=== PATIENT | male | born 1980 | race American Indian/Alaskan Native ===

== ENCOUNTER 2018-06-09 16:02 | Emergency (ER) | payer SELFPAY ==
--- NOTE | 2018-06-09 22:14 | Emergency Department Report ---
- General Chief complaint: Weakness Stated complaint: NAUSEA/DIZZINESS/FATIGUE Time Seen by Provider: 06/09/18 22:08 Source: patient Mode of arrival: Ambulatory Limitations: No Limitations - History of Present Illness MD Complaint: generalized weakness - Related Data Allergies Allergy/AdvReac Type Severity Reaction Status Date / Time No Known Allergies Allergy Unverified 06/09/18 16:20 ED Review of Systems ROS: Stated complaint: NAUSEA/DIZZINESS/FATIGUE Other details as noted in HPI ED Past Medical Hx - Past Medical History Previous Medical History?: No - Surgical History Past Surgical History?: No - Social History Smoking Status: Current Every Day Smoker Substance Use Type: None ED Physical Exam - General Limitations: No Limitations ED Course Vital Signs 06/09/18 16:13 Temperature 98.1 F Pulse Rate 66 Respiratory 18 Rate Blood Pressure 117/65 O2 Sat by Pulse 99 Oximetry Critical care attestation.: If time is entered above; I have spent that time in minutes in the direct care of this critically ill patient, excluding procedure time. ED Disposition Condition: Stable Referrals: PRIMARY CARE [Primary Care Provider] - 3-5 Days
[2018-06-09] MEDS ORDERED: SODIUM CHLORIDE FLUSH SYRINGE 10 ML IV PRN (22:50)
[2018-06-09] MEDS ORDERED: BABY ASPIRIN PO STA (22:50)
[2018-06-09 22:58] LABS: Basophils # (Auto) 0.1 K/mm3 (0.0-0.1); Eosinophils # (Auto) 0.3 K/mm3 (0.0-0.4); Eosinophils % (Auto) 5.7 % (0.0-4.3); Hematocrit 39.9 % (35.5-45.6); Hemoglobin 13.9 gm/dl (11.8-15.2); Lymphocytes # (Auto) 2.5 K/mm3 (1.2-5.4); Mean Corpuscular HGB Conc 35 % (32-34); Mean Corpuscular Hemoglobin 31 pg (28-32); Mean Corpuscular Volume 90 fl (84-94); Monocytes # (Auto) 0.5 K/mm3 (0.0-0.8); Monocytes % (Auto) 8.6 % (0.0-7.3); Platelet Count 248 K/mm3 (140-440); Red Blood Count 4.42 M/mm3 (3.65-5.03)
--- NOTE | 2018-06-09 22:59 | Emergency Department Report ---
Chief Complaint: Weakness Stated Complaint: NAUSEA/DIZZINESS/FATIGUE Time Seen by Provider: 06/09/18 22:08 - HPI History of Present Illness: 38-year-old -[place] male comes to the emergency room complaining of feeling dizzy lightheaded weakness nauseated 3 days. Patient states he feels fatigued. Patient reports that he was seen at [facility] about 2-3 weeks ago and they reported he was dehydrated. Patient reports that he is eating well and drinking fluids no fever he's taken aspirin for body aches. He works in a [employer]. He has no past medical story, and currently takes no medications on a daily basis and has no known drug allergies. - ROS Review of Systems: Feeling dizzy, lightheadedness, weakness and nauseated. Drinking well eating well and took aspirin for body aches. - Exam Vital Signs: Vital Signs 06/09/18 06/09/18 06/09/18 16:13 22:29 22:51 Temperature 98.1 F Pulse Rate 66 46 L Pulse Rate [ 46 L Lying] Pulse Rate [ 51 L Sitting] Pulse Rate [ 42 L Standing] Respiratory 18 Rate Blood Pressure 117/65 Blood Pressure 118/72 [Lying] Blood Pressure 113/71 [Sitting] Blood Pressure 121/70 [Standing] O2 Sat by Pulse 99 Oximetry Physical Exam: GENERAL: Alert and oriented x3, no apparent distress, Normal Gait, atraumatic. Patient appears to be lethargic HEAD: Head is normocephalic and a-traumatic. EYES: Extra ocular muscles are intact. Pupils are equal, round, and reactive to light and accommodation. EARS: symetrical, atraumatic, non tender, ear canal clear and moderate cerumen, tympanic membrance non inflamed. . NOSE: Nose symetrical, Nontender,Nares appeared normal. MOUTH:Mouth is well hydrated and without lesions. Tonsils nonerythematous or swollen, Uvula midline, Tongue not elevated. Mucous membranes are moist. Posterior pharynx clear, no exudate or lesions. Patent airways. NECK: Supple. Non edematous, No carotid bruits. No lymphadenopathy or thyromegaly. LUNGS: Symetrical with respiration, No wheezing, no rales or crackles, CTAB. HEART: S1, S2 present, regular rate and rhythm without murmur, no rubs, no gallops. ABDOMEN: No organomegaly was noted,Positive bowel sounds, soft, and non- distended. . Nontender to palpation on all Quadrants, NO CVA tenderness. EXTREMITIES/MUSCULOSKELETAL: No cyanosis, clubbing, rash, lesions or edema. Full ROM bilaterally. UE/LE Pulses 2+ bilaterally. LE and UE 5+ strength bilaterally NEUROLOGIC: No focal Deficit, Cranial nerves II through XII are grossly intact. No loss of sensation, No facial droop, Negative rhomberg. PSYCHIATRIC: Mood is congruent with affect, SKIN: Warm and dry, No lesions, No ulceration or induration present MSE screening note: Focused history and physical exam performed. Due to findings the following was ordered: CBC CMP troponin urinalysis chest x-ray IV insertion EKG. Patient's be evaluated by main ER doctors ED Medical Decision Making - Lab Data Result diagrams: 06/09/18 22:45 06/09/18 22:45 ED Disposition for MSE Clinical Impression: Lightheadedness, Bradycardia Condition: Stable Instructions: Near Syncope (ED) Additional Instructions: Rest, and avoid heavy lifting. Avoid strenuous physical activities. Follow-up with a clinical informatics strategist within the next 7-10 days. Return to the ER right away with new pain, worsened pain, migration of pain, particularly vomiting, change in mental status, confusion, inability to tolerate liquid feeds. Prescriptions: Ondansetron [Zofran Odt] 4 mg PO Q8HR PRN #20 tab.rapdis PRN Reason: Nausea Referrals: [facility] [Provider Group] - 3-5 Days [facility] [Provider Group] - 3-5 Days Forms: Work/School Release Form(ED)
[2018-06-09 23:03] LABS: Bilirubin,Urine NEG (Negative); Blood,Urine NEG (Negative); Color,Urine Yellow (Yellow); Mucus,Urine 1+ /HPF; Protein,Urine <15 mg/dL mg/dL (Negative)
[2018-06-09 23:14] LABS: Alanine Aminotransferase 17 units/L (7-56); Albumin 4.3 g/dL (3.9-5); BUN/Creatinine Ratio 10; Blood Urea Nitrogen 10 mg/dL (9-20); Calcium 9.2 mg/dL (8.4-10.2); Hemolysis Index 2
--- NOTE | 2018-06-09 23:44 | Emergency Department Report ---
ED General Adult HPI - General Chief complaint: Weakness Stated complaint: NAUSEA/DIZZINESS/FATIGUE Time Seen by Provider: 06/09/18 22:08 Source: patient, RN notes reviewed Mode of arrival: Ambulatory Limitations: No Limitations - History of Present Illness Initial comments: This is a 38-year-old gentleman who is not known to this provider previously. 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 He presents to the ER with complaints of nausea, dizziness, and lightheadedness. The symptoms are intermittent over the past week. The patient's symptoms are painless and does not radiate anywhere. 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 He does not have exertional shortness of breath. He denies leg pain, leg swelling, recent trips, cocaine use, drug use, and he denies DVT, pulmonary embolus risk factors. He endorses intermittent nausea. Currently, he has no headache, neck pain, chest pain, abdominal pain, shortness of breath. The patient endorses that he is eating 3 meals a day and drinks plenty of water. -: Gradual Consistency: intermittent Improves with: rest Worsens with: movement Associated Symptoms: loss of appetite, malaise, nausea/vomiting, syncope ( patient describes near syncope), weakness. denies: confusion, chest pain, cough , diaphoresis, fever/chills, headaches, rash, seizure, shortness of breath - Related Data Previous Rx's Medication Instructions Recorded Last Taken Type Ondansetron [Zofran Odt] 4 mg PO Q8HR PRN #20 tab.rapdis 06/09/18 Unknown Rx Allergies Allergy/AdvReac Type Severity Reaction Status Date / Time No Known Allergies Allergy Unverified 06/09/18 16:20 ED Review of Systems ROS: Stated complaint: NAUSEA/DIZZINESS/FATIGUE Other details as noted in HPI Constitutional: malaise, weakness. denies: fever Eyes: denies: eye discharge, vision change ENT: denies: epistaxis Respiratory: denies: cough Cardiovascular: denies: chest pain Gastrointestinal: nausea Genitourinary: denies: dysuria Musculoskeletal: denies: back pain Skin: denies: lesions Neurological: denies: numbness, paresthesias, confusion ED Past Medical Hx - Past Medical History Previous Medical History?: No - Surgical History Past Surgical History?: No - Social History Smoking Status: Current Every Day Smoker Substance Use Type: None - Medications Home Medications: Home Medications Medication Instructions Recorded Confirmed Last Taken Type Ondansetron [Zofran Odt] 4 mg PO Q8HR PRN #20 tab.siddharthadis 06/09/18 Unknown Rx ED Physical Exam - General Limitations: No Limitations General appearance: alert, in no apparent distress - Head Head exam: Present: atraumatic, normocephalic, other (there is no mastoid tenderness) - Eye Eye exam: Present: normal appearance, PERRL, EOMI, other (visual acuity intact to finger counting, color perception, reading at a close distance). Absent: nystagmus - ENT ENT exam: Present: normal exam, normal orophraynx, mucous membranes moist, normal external ear exam - Neck Neck exam: Present: normal inspection, full ROM. Absent: tenderness, meningismus - Respiratory Respiratory exam: Present: normal lung sounds bilaterally. Absent: respiratory distress - Cardiovascular Cardiovascular Exam: Present: normal rhythm, bradycardia, normal heart sounds. Absent: tachycardia, irregular rhythm, systolic murmur, diastolic murmur, rubs, gallop - GI/Abdominal GI/Abdominal exam: Present: soft. Absent: distended, tenderness, guarding, rebound, rigid, pulsatile mass - Rectal Rectal exam: Present: deferred - Extremities Exam Extremities exam: Present: normal inspection, full ROM, normal capillary refill , other (2+ pulses noted in the bilateral upper, lower extremities. Compartments soft. No long bony tenderness. The pelvis is stable.). Absent: tenderness, pedal edema, joint swelling, calf tenderness - Back Exam Back exam: Present: normal inspection, full ROM. Absent: tenderness, CVA tenderness (R), paraspinal tenderness, vertebral tenderness - Neurological Exam Neurological exam: Present: alert, oriented X3, CN II-XII intact, normal gait ( there is no past-pointing. There is normal [id number]. There is normal gait. There is normal tandem gait. There is negative Romberg examination), other (Extraocular movements intact. Tongue midline. No facial droop. Facial sensation intact to light touch in the V1, V2, V3 distribution bilaterally. 5 and 5 strength in 4 extremities.. Sensation is intact to light touch in 4 extremities.). Absent: motor sensory deficit - Psychiatric Psychiatric exam: Present: normal affect, normal mood - Skin Skin exam: Present: warm, dry, intact, normal color. Absent: rash ED Course Vital Signs 06/09/18 06/09/18 06/09/18 16:13 22:29 22:51 Temperature 98.1 F Pulse Rate 66 46 L Pulse Rate [ 46 L Lying] Pulse Rate [ 51 L Sitting] Pulse Rate [ 42 L Standing] Respiratory 18 Rate Blood Pressure 117/65 Blood Pressure 118/72 [Lying] Blood Pressure 113/71 [Sitting] Blood Pressure 121/70 [Standing] O2 Sat by Pulse 99 Oximetry ED Medical Decision Making - Lab Data Result diagrams: 06/09/18 22:45 06/09/18 22:45 Vital Signs 06/09/18 06/09/18 06/09/18 16:13 22:29 22:51 Temperature 98.1 F Pulse Rate 66 46 L Pulse Rate [ 46 L Lying] Pulse Rate [ 51 L Sitting] Pulse Rate [ 42 L Standing] Respiratory 18 Rate Blood Pressure 117/65 Blood Pressure 118/72 [Lying] Blood Pressure 113/71 [Sitting] Blood Pressure 121/70 [Standing] O2 Sat by Pulse 99 Oximetry Lab Results 06/09/18 06/09/18 06/09/18 Range/Units 22:45 22:45 22:45 WBC 5.5 (4.5-11.0) K/mm3 RBC 4.42 (3.65-5.03) M/mm3 Hgb 13.9 (11.8-15.2) gm/dl Hct 39.9 (35.5-45.6) % MCV 90 (84-94) fl MCH 31 (28-32) pg MCHC 35 H (32-34) % RDW 13.0 L (13.2-15.2) % Plt Count 248 (140-440) K/mm3 Lymph % (Auto) 45.0 H (13.4-35.0) % [place] % (Auto) 8.6 H (0.0-7.3) % Eos % (Auto) 5.7 H (0.0-4.3) % Baso % (Auto) 1.0 (0.0-1.8) % Lymph # 2.5 (1.2-5.4) K/mm3 [place] # 0.5 (0.0-0.8) K/mm3 Eos # 0.3 (0.0-0.4) K/mm3 Baso # 0.1 (0.0-0.1) K/mm3 Seg Neutrophils % 39.7 L (40.0-70.0) % Seg Neutrophils # 2.2 (1.8-7.7) K/mm3 Sodium 139 (137-145) mmol/L Potassium 3.8 (3.6-5.0) mmol/L Chloride 100.6 (98-107) mmol/L Carbon Dioxide 29 (22-30) mmol/L Anion Gap 13 mmol/L BUN 10 (9-20) mg/dL Creatinine 1.0 (0.8-1.5) mg/dL Estimated GFR > 60 ml/min BUN/Creatinine Ratio 10 % Glucose 99 (75-100) mg/dL Calcium 9.2 (8.4-10.2) mg/dL Total Bilirubin 0.80 (0.1-1.2) mg/dL AST 21 (5-40) units/L ALT 17 (7-56) units/L Alkaline Phosphatase 63 (35-129) units/L Total Protein 7.6 (6.3-8.2) g/dL Albumin 4.3 (3.9-5) g/dL Albumin/Globulin Ratio 1.3 % TSH 0.642 (0.270-4.200) mlU/mL Urine Color (Yellow) Urine Turbidity (Clear) Urine pH (5.0-7.0) Ur Specific [place] (1.003-1.030) Urine Protein (Negative) mg/dL Urine Glucose (UA) (Negative) mg/dL Urine Ketones (Negative) mg/dL Urine Blood (Negative) Urine Nitrite (Negative) Urine Bilirubin (Negative) Urine Urobilinogen (<2.0) mg/dL Ur Leukocyte Esterase (Negative) Urine WBC (Auto) (0.0-6.0) /HPF Urine RBC (Auto) (0.0-6.0) /HPF Urine Mucus /HPF 06/09/18 Range/Units Unknown WBC (4.5-11.0) K/mm3 RBC (3.65-5.03) M/mm3 Hgb (11.8-15.2) gm/dl Hct (35.5-45.6) % MCV (84-94) fl MCH (28-32) pg MCHC (32-34) % RDW (13.2-15.2) % Plt Count (140-440) K/mm3 Lymph % (Auto) (13.4-35.0) % [place] % (Auto) (0.0-7.3) % Eos % (Auto) (0.0-4.3) % Baso % (Auto) (0.0-1.8) % Lymph # (1.2-5.4) K/mm3 [place] # (0.0-0.8) K/mm3 Eos # (0.0-0.4) K/mm3 Baso # (0.0-0.1) K/mm3 Seg Neutrophils % (40.0-70.0) % Seg Neutrophils # (1.8-7.7) K/mm3 Sodium (137-145) mmol/L Potassium (3.6-5.0) mmol/L Chloride (98-107) mmol/L Carbon Dioxide (22-30) mmol/L Anion Gap mmol/L BUN (9-20) mg/dL Creatinine (0.8-1.5) mg/dL Estimated GFR ml/min BUN/Creatinine Ratio % Glucose (75-100) mg/dL Calcium (8.4-10.2) mg/dL Total Bilirubin (0.1-1.2) mg/dL AST (5-40) units/L ALT (7-56) units/L Alkaline Phosphatase (35-129) units/L Total Protein (6.3-8.2) g/dL Albumin (3.9-5) g/dL Albumin/Globulin Ratio % TSH (0.270-4.200) mlU/mL Urine Color Yellow (Yellow) Urine Turbidity Clear (Clear) Urine pH 6.0 (5.0-7.0) Ur Specific [place] 1.021 (1.003-1.030) Urine Protein <15 mg/dl (Negative) mg/dL Urine Glucose (UA) Neg (Negative) mg/dL Urine Ketones Neg (Negative) mg/dL Urine Blood Neg (Negative) Urine Nitrite Neg (Negative) Urine Bilirubin Neg (Negative) Urine Urobilinogen 4.0 (<2.0) mg/dL Ur Leukocyte Esterase Neg (Negative) Urine WBC (Auto) 1.0 (0.0-6.0) /HPF Urine RBC (Auto) 3.0 (0.0-6.0) /HPF Urine Mucus 1+ /HPF - EKG Data -: EKG Interpreted by Me EKG shows normal: sinus rhythm Rate: bradycardia - EKG Data When compared to previous EKG there are: previous EKG unavailable 06/09/18 23:44 Bradycardia, normal axis, benign early repolarization, high left ventricular voltage, intervals within normal limits, not having chest pain, not a STEMI - Medical Decision Making Differential diagnosis, including but not limited to: Orthostasis, vagal event, structural cardiac disease, bradycardia Assessment and plan: 38-year-old gentleman who does a lot of heavy lifting for work without exertional dyspnea, has no pulmonary embolus or DVT risk factors, is low risk by well's criteria, is perc negative, with lightheadedness, dizziness and nausea. These symptoms are intermittent. He is currently hemodynamically stable, normotensive and in no distress. He has a normal neurologic examination. He has no posterior circulation signs at this time. On my examination the patient is in no distress and noted to be playing on a cellular phone. There is no active vomiting. Patient is counseled to rest and avoid heavy lifting, and he will follow up with outpatient cardiology for his bradycardia. Critical care attestation.: If time is entered above; I have spent that time in minutes in the direct care of this critically ill patient, excluding procedure time. ED Disposition Clinical Impression: Lightheadedness, Bradycardia Disposition: DC-01 TO HOME OR SELFCARE Is pt being admited?: No Does the pt Need Aspirin: No Condition: Good Instructions: Near Syncope (ED) Additional Instructions: Rest, and avoid heavy lifting. Avoid strenuous physical activities. Follow-up with a fabrication engineer within the next 7-10 days. Return to the ER right away with new pain, worsened pain, migration of pain, particularly vomiting, change in mental status, confusion, inability to tolerate liquid feeds. Referrals: [facility] [Provider Group] - 3-5 Days [facility] - 3-5 Days Forms: Work/School Release Form(ED)
[2018-06-09] MEDS ORDERED: ZOFRAN ODT PO ONE (23:47)
[2018-06-09 23:50] LABS: INR 1.2 (0.87-1.13)
[2018-06-09 23:51] LABS: Partial Thromboplastin Time 30.9 Sec. (24.2-36.6)
[2018-06-10 00:21] VITALS: BP 132/84
== END 2018-06-10 00:16 | disposition home or self-care (01) ==
LOC: ED 16:02
DX: R42 Dizziness and giddiness (principal); R00.1 Bradycardia, unspecified; R11.2 Nausea with vomiting, unspecified; R63.0 Anorexia; R53.81 Other malaise; F17.200 Nicotine dependence, unspecified, uncomplicated
CPT/HCPCS: 36415; 80053; 81001; 84443; 85025; 85610; 85730; 93005; 93010; 99283; Q0162

== ENCOUNTER 2018-06-14 20:22 | Emergency (ER) | payer SELFPAY ==
[2018-06-14] MEDS ORDERED: ASPIRIN PO ONE (20:42)
[2018-06-14 21:02] LABS: Basophils # (Auto) 0.1 K/mm3 (0.0-0.1); Basophils % (Auto) 1.1 % (0.0-1.8); Eosinophils # (Auto) 0.2 K/mm3 (0.0-0.4); Eosinophils % (Auto) 4.1 % (0.0-4.3); Hematocrit 40.7 % (35.5-45.6); Lymphocytes # (Auto) 2.9 K/mm3 (1.2-5.4); Lymphocytes % (Auto) 49.7 % (13.4-35.0); Mean Corpuscular HGB Conc 34 % (32-34); Mean Corpuscular Hemoglobin 31 pg (28-32); Mean Corpuscular Volume 90 fl (84-94); Monocytes # (Auto) 0.3 K/mm3 (0.0-0.8); Monocytes % (Auto) 5.8 % (0.0-7.3); Platelet Count 249 K/mm3 (140-440); Red Blood Count 4.53 M/mm3 (3.65-5.03); Red Cell Distribution Width 12.7 % (13.2-15.2)
[2018-06-14 21:17] LABS: BUN/Creatinine Ratio 13; Blood Urea Nitrogen 13 mg/dL (9-20); Calcium 9.5 mg/dL (8.4-10.2); Hemolysis Index 4
[2018-06-15] MEDS ORDERED: TORADOL IM ONE (00:44)
--- NOTE | 2018-06-15 01:03 | Emergency Department Report ---
ED Chest Pain HPI - General Chief Complaint: Chest Pain Stated Complaint: CHEST PAIN Time Seen by Provider: 06/15/18 00:39 Source: patient Mode of arrival: Ambulatory Limitations: No Limitations - History of Present Illness Initial Comments: 38-year-old -[place] male presents to the emergency department with complaint of some midsternal nonradiating chest pain it's been going on since yesterday. He denies any shortness of breath, fever, nausea, vomiting or diaphoresis. He denies any past medical history. He did not take anything for his symptoms prior to presentation. No alleviating factors. The pain worsens with certain movements of his body and/or torso. He is a tobacco smoker but denies any illicit drug use. No family history of early cardiac disease or cardiac events. - Related Data Previous Rx's Medication Instructions Recorded Last Taken Type Ondansetron [Zofran Odt] 4 mg PO Q8HR PRN #20 tab.rapdis 06/09/18 Unknown Rx Ibuprofen [Motrin 600 MG tab] 600 mg PO Q8H PRN #20 tablet 06/15/18 Unknown Rx traMADol [Ultram 50 MG tab] 50 mg PO Q6HR PRN #12 tablet 06/15/18 Unknown Rx Allergies Allergy/AdvReac Type Severity Reaction Status Date / Time No Known Allergies Allergy Verified 06/14/18 20:42 Heart Score - HEART Score History: Slightly suspicious EKG: Normal Age: < 45 Risk factors: 1-2 risk factors Troponin: < normal limit HEART Score: 1 - Critical Actions Critical Actions: 0-3 pts:0.9-1.7%risk of adverse cardiac event.Candidate for discharge ED Review of Systems ROS: Stated complaint: CHEST PAIN Other details as noted in HPI Comment: All other systems reviewed and negative Constitutional: denies: chills, fever Eyes: denies: eye pain, eye discharge, vision change ENT: denies: ear pain, throat pain Respiratory: denies: cough, shortness of breath, wheezing Cardiovascular: chest pain. denies: palpitations Gastrointestinal: denies: abdominal pain, nausea, diarrhea Genitourinary: denies: urgency, dysuria Musculoskeletal: denies: back pain, joint swelling, arthralgia Skin: denies: rash, lesions Neurological: denies: headache, weakness, paresthesias ED Past Medical Hx - Past Medical History Previous Medical History?: Yes Additional medical history: low heart rate - Surgical History Past Surgical History?: No - Social History Smoking Status: Current Every Day Smoker Substance Use Type: None - Medications Home Medications: Home Medications Medication Instructions Recorded Confirmed Last Taken Type Ondansetron [Zofran Odt] 4 mg PO Q8HR PRN #20 tab.rapdis 06/09/18 Unknown Rx Ibuprofen [Motrin 600 MG tab] 600 mg PO Q8H PRN #20 tablet 06/15/18 Unknown Rx traMADol [Ultram 50 MG tab] 50 mg PO Q6HR PRN #12 tablet 06/15/18 Unknown Rx ED Physical Exam - General Limitations: No Limitations - Other Other exam information: GENERAL: The patient is well-developed well-nourished. HENT: Normocephalic. Atraumatic. Patient has moist mucous membranes. EYES: Extraocular motions are intact. Pupils equal reactive to light bilaterally. NECK: Supple. Trachea is midline. CHEST/LUNGS: Clear to auscultation. There is no respiratory distress noted. There is reproducible midsternal tenderness to palpation but no crepitus or deformity. HEART/CARDIOVASCULAR: Regular. There is no tachycardia. There is no murmur. ABDOMEN: Abdomen is soft, nontender. Patient has normal bowel sounds. There is no abdominal distention. SKIN: Skin is warm and dry. NEURO: The patient is awake, alert, and oriented. The patient is cooperative. The patient has no focal neurologic deficits. The patient has normal speech. MUSCULOSKELETAL: There is no tenderness or deformity. There is no limitation range of motion. There is no evidence of acute injury. ED Course Vital Signs 06/14/18 06/15/18 06/15/18 20:39 02:20 02:29 Temperature 98.3 F 97.7 F Pulse Rate 64 51 L Respiratory 18 18 Rate Blood Pressure 115/74 Blood Pressure 122/71 [Right] O2 Sat by Pulse 100 85 100 Oximetry 06/15/18 06/15/18 02:30 03:00 Temperature Pulse Rate Respiratory Rate Blood Pressure 122/71 110/63 Blood Pressure [Right] O2 Sat by Pulse 100 99 Oximetry SHRUTHI score - Shruthi Score Age > 65: (0) No Aspirin use within the Past 7 Days: (0) No 3 or more CAD Risk Factors: (0) No 2 or more Angina events in past 24 hrs: (1) Yes (if pain is considered angina but more likely to be costochondritis) Known CAD with more than 50% Stenosis: (0) No Elevated Cardiac Markers: (0) No ST Deviation Greater than 0.5mm: (0) No SHRUTHI Score: 1 ED Medical Decision Making - Lab Data Result diagrams: 06/14/18 20:53 06/14/18 20:53 - EKG Data -: EKG Interpreted by Me EKG shows normal: sinus rhythm, axis, intervals, QRS complexes (LVH, early repolarization), ST-T waves Rate: bradycardia (58 bpm) - EKG Data When compared to previous EKG there are: no significant change (06/09/18) Interpretation: LVH (early repolarization) - Radiology Data Radiology results: image reviewed interpreted by me: Chest x-ray does not show any acute process. There are no pleural effusions, obvious pneumonia and there is no pneumothorax. - Medical Decision Making Patient presents with some midsternal chest discomfort that is reproducible both to palpation and to movements of the torso. EKG shows some early repolarization but otherwise no ST elevation DC, dysrhythmia or obvious ischemia. Labs were unremarkable including negative troponins 2. Negative d- dimer. Chest x-ray did not show any acute process. The patient is low on the heart score criteria and has a low SHRUTHI score. Vital signs stable throughout his ED course. He was given a shot of Toradol with some improvement. He appears safe for discharge home has been given a referral for cardiology and instructed to return to the emergency Department with any worsening of symptoms or any acute distress. - Differential Diagnosis costochondritis, GERD, DC, PE Critical Care Time: No Critical care attestation.: If time is entered above; I have spent that time in minutes in the direct care of this critically ill patient, excluding procedure time. ED Disposition Clinical Impression: Chest pain, Chest wall pain Disposition: -01 TO HOME OR SELFCARE Is pt being admited?: No Condition: Stable Instructions: Chest Pain (ED), Costochondritis (ED) Additional Instructions: Please follow up with a primary care physician in the next few days. I have given her a referral for a local network diagnostic support specialist, Dr. Holden, to follow up regarding your chest pains. Return to the emergency Department with any worsening of your symptoms or any acute distress. You have been prescribed a medication that is sedating and therefore should not be taken prior to driving, working, and responsible for children and in no way should be mixed with alcohol of any quantity. Prescriptions: Ibuprofen [Motrin 600 MG tab] 600 mg PO Q8H PRN #20 tablet PRN Reason: Pain traMADol [Ultram 50 MG tab] 50 mg PO Q6HR PRN #12 tablet PRN Reason: Pain Referrals: PRIMARY CAREMD [Primary Care Provider] - 3-5 Days MISTY HOLDEN MD [Staff Physician] - 3-5 Days [facility] [Outside] - 3-5 Days Forms: Work/School Release Form(ED) Time of Disposition: 02:55
--- NOTE | 2018-06-15 01:05 | XRay Report ---
FINAL REPORT EXAM: XR CHEST ROUTINE 2V HISTORY: CP COMPARISON: None available. FINDINGS:: Frontal and lateral views of the chest obtained. Cardiac silhouette is within normal limits. No focal consolidation or effusion. No pneumothorax. Visualized bony thorax is grossly intact. IMPRESSION:: No acute findings.
[2018-06-15] MEDS ORDERED: ASPIRIN ONE (02:18)
[2018-06-15 03:18] VITALS: BP 110/63
== END 2018-06-15 03:21 | disposition home or self-care (01) ==
LOC: ED 20:22
DX: R07.89 Other chest pain (principal); R00.1 Bradycardia, unspecified; F17.200 Nicotine dependence, unspecified, uncomplicated
CPT/HCPCS: 36415; 71046; 80048; 84484; 85025; 85379; 93005; 93010; 96372; 99284; J1885

== ENCOUNTER 2018-10-01 22:40 | Inpatient (IN) | payer OTHER ==
[2018-10-01 23:28] LABS: Basophils % (Auto) 0.3 % (0.0-1.8); Eosinophils # (Auto) 0.1 K/mm3 (0.0-0.4); Eosinophils % (Auto) 0.4 % (0.0-4.3); Hematocrit 44.1 % (35.5-45.6); Hemoglobin 14.6 gm/dl (11.8-15.2); Lymphocytes # (Auto) 1.9 K/mm3 (1.2-5.4); Lymphocytes % (Auto) 16.2 % (13.4-35.0); Mean Corpuscular HGB Conc 33 % (32-34); Mean Corpuscular Volume 90 fl (84-94); Monocytes # (Auto) 0.8 K/mm3 (0.0-0.8); Monocytes % (Auto) 6.6 % (0.0-7.3); Platelet Count 293 K/mm3 (140-440)
[2018-10-01 23:31] LABS: Alanine Aminotransferase 12 units/L (7-56); Albumin 4.6 g/dL (3.9-5); BUN/Creatinine Ratio 13; Blood Urea Nitrogen 13 mg/dL (9-20); Calcium 9.6 mg/dL (8.4-10.2); Hemolysis Index 12
[2018-10-02] MEDS ORDERED: ZOFRAN IV ONE (01:57)
[2018-10-02] MEDS ORDERED: MORPHINE IV ONE (01:57)
[2018-10-02] MEDS ORDERED: NACL 0.9% 1000 ML 1,000 ML IV ONE (01:57)
--- NOTE | 2018-10-02 02:17 | Emergency Department Report ---
ED Abdominal Pain HPI - General Chief Complaint: Abdominal Pain Stated Complaint: N/V Time Seen by Provider: 10/02/18 01:56 Source: patient Mode of arrival: Ambulatory Limitations: No Limitations - History of Present Illness Initial Comments: Patient is a 38-year-old -[place] male sudden onset of right lower quadrant pain this a.m. as it awakened him from sleep at 10/10 pain sharp aching radiating to her back and groin patient states on either tolerate by mouth since with multiple episodes of watery diarrhea scant amount associated symptoms including malaise and fever . No relieving or other exacerbating factors MD Complaint: abdominal pain Onset/Timin -: days(s) Location: RLQ Radiation: LLQ, R flank Migration to: RLQ Severity: moderate Severity scale (0 -10): 10 Quality: sharp Consistency: constant Improves With: nothing Worsens With: eating Associated Symptoms: nausea, vomiting, diarrhea, fever, chills, constipation. denies: hematemesis, hematochezia, melena, hematuria, anorexia, syncope - Related Data Previous Rx's Medication Instructions Recorded Last Taken Type Ondansetron [Zofran ODT TAB] 4 mg PO Q8HR PRN #20 tab.rapdis 06/09/18 Unknown Rx Ibuprofen [Motrin 600 MG tab] 600 mg PO Q8H PRN #20 tablet 06/15/18 Unknown Rx traMADol [Ultram 50 MG tab] 50 mg PO Q6HR PRN #12 tablet 06/15/18 Unknown Rx ALBUTEROL Inhaler (OR & NICU) 2 puff IH QID PRN #1 inhalation 07/02/18 Unknown Rx [ProAir HFA Inhaler] Brompheniramine/Pseudoephed/Dm 5 ml PO Q6HR #120 syrup 07/02/18 Unknown Rx [Kpgpefpslx-Jadkrobqiiz-Nz Syr] predniSONE [Deltasone] 20 mg PO QDAY #5 tab 07/02/18 Unknown Rx Famotidine [Pepcid] 10 mg PO BID #30 tablet 07/25/18 Unknown Rx Allergies Allergy/AdvReac Type Severity Reaction Status Date / Time No Known Allergies Allergy Verified 07/02/18 11:12 ED Review of Systems ROS: Stated complaint: N/V Other details as noted in HPI Constitutional: chills, fever Eyes: denies: eye pain, eye discharge, vision change ENT: denies: ear pain, throat pain Respiratory: denies: cough, shortness of breath, wheezing Cardiovascular: denies: chest pain, palpitations Endocrine: no symptoms reported Gastrointestinal: abdominal pain, nausea, vomiting, diarrhea, constipation. d enies: hematemesis, hematochezia Genitourinary: denies: urgency, dysuria Musculoskeletal: denies: back pain, joint swelling, arthralgia Skin: denies: rash, lesions Neurological: denies: headache, weakness, paresthesias Psychiatric: denies: anxiety, depression Hematological/Lymphatic: denies: easy bleeding, easy bruising ED Past Medical Hx - Past Medical History Previous Medical History?: No Additional medical history: low heart rate - Surgical History Past Surgical History?: No - Social History Smoking Status: Heavy Tobacco Smoker Substance Use Type: Marijuana - Medications Home Medications: Home Medications Medication Instructions Recorded Confirmed Last Taken Type Ondansetron [Zofran ODT TAB] 4 mg PO Q8HR PRN #20 tab.rapdis 06/09/18 Unknown Rx Ibuprofen [Motrin 600 MG tab] 600 mg PO Q8H PRN #20 tablet 06/15/18 Unknown Rx traMADol [Ultram 50 MG tab] 50 mg PO Q6HR PRN #12 tablet 06/15/18 Unknown Rx ALBUTEROL Inhaler (OR & NICU) 2 puff IH QID PRN #1 inhalation 07/02/18 Unknown Rx [ProAir HFA Inhaler] Brompheniramine/Pseudoephed/Dm 5 ml PO Q6HR #120 syrup 07/02/18 Unknown Rx [Lsffmcbtlw-Jbmhqafzfiw-Yr Syr] predniSONE [Deltasone] 20 mg PO QDAY #5 tab 07/02/18 Unknown Rx Famotidine [Pepcid] 10 mg PO BID #30 tablet 07/25/18 Unknown Rx ED Physical Exam - General Limitations: No Limitations General appearance: alert, in no apparent distress - Head Head exam: Present: atraumatic, normocephalic - Eye Eye exam: Present: normal appearance - ENT ENT exam: Present: mucous membranes moist - Neck Neck exam: Present: normal inspection, full ROM - Respiratory Respiratory exam: Present: normal lung sounds bilaterally. Absent: respiratory distress, wheezes, stridor, chest wall tenderness - Cardiovascular Cardiovascular Exam: Present: regular rate, normal rhythm, normal heart sounds. Absent: systolic murmur, diastolic murmur, rubs, gallop - GI/Abdominal GI/Abdominal exam: Present: tenderness (RLQ ), guarding, normal bowel sounds. Absent: distended, rebound, rigid, bruit, hernia - Expanded GI/Abdominal Exam Expanded GI/Abdominal exam: Present: psoas sign, obturator sign, heel tap sign, tenderness at [place]'s Point. Absent: Worley's sign, Rovsing's sign, ascites - Rectal Rectal exam: Present: deferred - Extremities Exam Extremities exam: Present: normal inspection, full ROM, normal capillary refill. Absent: tenderness, pedal edema, joint swelling, calf tenderness - Back Exam Back exam: Present: normal inspection, full ROM. Absent: tenderness, CVA tenderness (R), CVA tenderness (L), muscle spasm, paraspinal tenderness, vertebral tenderness, rash noted - Neurological Exam Neurological exam: Present: alert, oriented X3, CN II-XII intact - Psychiatric Psychiatric exam: Present: normal affect, normal mood - Skin Skin exam: Present: warm, dry, intact, normal color. Absent: rash ED Course Vital Signs 10/01/18 10/01/18 22:44 22:58 Temperature 97.5 F L 97.5 F L Pulse Rate 67 68 Respiratory 18 18 Rate Blood Pressure 136/76 136/76 O2 Sat by Pulse 98 100 Oximetry ED Medical Decision Making - Lab Data Result diagrams: 10/01/18 23:05 10/01/18 23:05 Labs 10/01/18 10/01/18 10/02/18 23:05 23:05 Unknown WBC 11.8 H RBC 4.90 Hgb 14.6 Hct 44.1 MCV 90 MCH 30 MCHC 33 RDW 13.0 L Plt Count 293 Lymph % (Auto) 16.2 [place] % (Auto) 6.6 Eos % (Auto) 0.4 Baso % (Auto) 0.3 Lymph # 1.9 [place] # 0.8 Eos # 0.1 Baso # 0.0 Seg Neutrophils % 76.5 H Seg Neutrophils # 9.1 H Sodium 138 Potassium 4.6 Chloride 100.2 Carbon Dioxide 26 Anion Gap 16 BUN 13 Creatinine 1.0 Estimated GFR > 60 BUN/Creatinine Ratio 13 Glucose 145 H Calcium 9.6 Total Bilirubin 0.50 AST 15 ALT 12 Alkaline Phosphatase 60 Total Protein 7.0 Albumin 4.6 Albumin/Globulin Ratio 1.9 Lipase 12 L - Radiology Data Radiology results: report reviewed, image reviewed Dialtated Appendix >8mm, likely early appendicitis - Medical Decision Making CT results mildly dilated appendix greater than a millimeters confirmation. Radiology consult general surgery doctorClementina recommendation admitted to hospitalist diagnosis acute appendicitis Dr Mcrae will see pt in am for further evaluation including possible surgery, Zosyn , IVFs, NPO, consult hospitalist. Consulted hospitalist at this time pt handoff complete will admit patient. Hospitilist at bedside for evaluation and admission orders at this time. H ospitalist advises that she place all admission orders. Critical care attestation.: If time is entered above; I have spent that time in minutes in the direct care of this critically ill patient, excluding procedure time. ED Disposition Clinical Impression: Acute appendicitis Qualifiers: Acute appendicitis type: unspecified acute appendicitis type Qualified Code(s): K35.80 - Unspecified acute appendicitis Abdominal pain Qualifiers: Abdominal location: right lower quadrant Qualified Code(s): R10.31 - Right lower quadrant pain Disposition: OP ADMIT IP TO THIS HOSP Is pt being admited?: Yes Does the pt Need Aspirin: No Condition: Stable Instructions: Abdominal Pain (ED) Time of Disposition: 03:53
--- NOTE | 2018-10-02 03:40 | Cat Scan Report ---
FINAL REPORT EXAM: CT ABDOMEN PELVIS W CON HISTORY: abd pain rlq tenderness COMPARISON: None available. TECHNIQUE: Contiguous axial images were obtained. Additional sagittal and coronal reformatted images were obtained. Administration of IV contrast given per institution protocol. Images submitted for in terpretation. FINDINGS: Lung bases are clear. No calcified gallstones or biliary dilatation. Homogeneous enhancement of the l iver, spleen, pancreas and adrenal glands. No solid renal lesion. No hydronephrosis. Aorta and IVC no rmal in caliber. Urinary bladder and prostate gland are grossly unremarkable. No free fluid or lymphadenopathy in the pelvic cavity. The appendix measures up to 8 millimeters in diameter. No wall thickening or adjacent fat stranding. Large and small bowel loops normal in caliber. Moderate stool in the colon. Lumbar vertebral body heights preserved. Bony pelvis is grossly intact. IMPRESSION: The appendix is mildly dilated measuring up to 8 millimeters. No adjacent fat stranding or fluid. In the correct clinical setting, findings could reflect very early developing acute appendicitis. No other acute findings.
[2018-10-02 03:56] LABS: Bilirubin,Urine NEG (Negative); Blood,Urine NEG (Negative); Color,Urine Yellow (Yellow); Mucus,Urine 2+ /HPF; Protein,Urine <15 mg/dL mg/dL (Negative); Urobilinogen,Urine < 2.0 mg/dL (<2.0)
[2018-10-02] MEDS ORDERED: TYLENOL PO PRN (04:02)
[2018-10-02] MEDS ORDERED: SODIUM CHLORIDE FLUSH SYRINGE 10 ML IV PRN (04:02)
--- NOTE | 2018-10-02 04:05 | History and Physical Report ---
History of Present Illness Date of examination: 10/02/18 History of present illness: 38-year-old man with no medical problems comes emergency room with complaints of abdominal pain that started yesterday. pain is in the mid abdomen describes as a sharp sensation, worse with nausea, vomiting, intensity 6/10, no radiation. Admits to vomiting at least 15 times, last 2 vomitus had small amounts of blood Review of systems Constitutional: no weight loss, chills, fever Ears, eyes, nose, mouth and throat: no nasal congestion, no nasal discharge, no sinus pressure, no vision change, no red eye. Neck: No neck pain or rigidity. Cardiovascular: no palpitations, chest pain Respiratory: no cough, shortness of breath Gastrointestinal: no hematochezia Genitourinary : no frequency , no hematuria Musculoskeletal: no joint swelling or muscle ache Integumentary: no rash, no pruritis Neurological: no parathesias, no focal weakness Endocrine: no cold or heat intolerance, no polyuria or polydipsia Hematologic/Lymphatic: no easy bruising, no easy bleeding, no gland swelling Allergic/Immunologic: no urticaria, no angioedema. PAST MEDICAL HISTORY: None PAST SURGICAL HISTORY: None SOCIAL HISTORY: No alcohol, no drugs, tobacco FAMILY HISTORY: Hypertension Medications and Allergies Allergies Allergy/AdvReac Type Severity Reaction Status Date / Time No Known Allergies Allergy Verified 07/02/18 11:12 Home Medications Medication Instructions Recorded Confirmed Last Taken Type RX: Ondansetron [Zofran ODT TAB] 4 mg PO Q8HR PRN #20 tab.rapdis 06/09/18 Unknown Rx RX: Ibuprofen [Motrin 600 MG tab] 600 mg PO Q8H PRN #20 tablet 06/15/18 Unknown Rx RX: traMADol [Ultram 50 MG tab] 50 mg PO Q6HR PRN #12 tablet 06/15/18 Unknown Rx RX: ALBUTEROL Inhaler (OR & NICU) 2 puff IH QID PRN #1 inhalation 07/02/18 Unknown Rx [ProAir HFA Inhaler] RX: Brompheniramine/Pseudoephed/Dm 5 ml PO Q6HR #120 syrup 07/02/18 Unknown Rx [Xychvhbege-Magqpwfwmlp-Ye Syr] RX: predniSONE [Deltasone] 20 mg PO QDAY #5 tab 07/02/18 Unknown Rx Famotidine [Pepcid] 10 mg PO BID #30 tablet 07/25/18 Unknown Rx RX: oxyCODONE /ACETAMINOPHEN 2 tab PO Q6H PRN #20 tablet 10/04/18 Unknown Rx [Percocet 5/325 mg] Exam - Physical Exam Narrative exam: General Apperance: The patient lying in bed, breathing comfortable HEENT: Normocephalic, atraumatic. Pupils equally round and reactive to light, EOMI, no sclericterus or JVD or thyromegaly or nodule. , no carotid bruit, mucous membranes moist, no exudate or erythema Heart: S1-S2, regular is rhythm Lungs: Clear to auscultation bilaterally, breathing comfortable Abdomen: Positive bowel sounds, soft, tender in the mid abdomen, nondistended, no organomegaly Extremities: No edema cyanosis clubbing Skin: no rash, nodule, warm and dry Neuro: cranial nerves 2-12 intact, speech is fluent, motor/sensory intact - Constitutional Vitals: Temp Pulse Resp BP Pulse Ox 97.5 F L 68 18 136/76 100 10/01/18 22:58 10/01/18 22:58 10/01/18 22:58 10/01/18 22:58 10/01/18 22:58 Results - Labs CBC & Chem 7: 10/03/18 13:55 10/03/18 13:55 Labs: Abnormal lab results 10/01/18 10/01/18 10/02/18 Range/Units 23:05 23:05 Unknown WBC 11.8 H (4.5-11.0) K/mm3 RDW 13.0 L (13.2-15.2) % Seg Neutrophils % 76.5 H (40.0-70.0) % Seg Neutrophils # 9.1 H (1.8-7.7) K/mm3 Glucose 145 H (75-100) mg/dL Lipase 12 L (13-60) units/L - Imaging and Cardiology CT scan - abdomen: report reviewed CT scan - pelvis: report reviewed Assessment and Plan Assessment Acute appendicitis Small amount of blood in vomitus Plan Admit to medicine Start IV fluid, Zosyn, consult surgery Monitor hemoglobin, hemoglobin stable at this point, start Protonix DVT prophylaxis
[2018-10-02 04:42] LABS: Basophils % (Auto) 0.2 % (0.0-1.8); Hematocrit 40.6 % (35.5-45.6); Hemoglobin 13.7 gm/dl (11.8-15.2); Lymphocytes % (Auto) 6.6 % (13.4-35.0); Mean Corpuscular HGB Conc 34 % (32-34); Mean Corpuscular Volume 90 fl (84-94); Monocytes # (Auto) 0.7 K/mm3 (0.0-0.8); Monocytes % (Auto) 4.2 % (0.0-7.3); Platelet Count 246 K/mm3 (140-440); Red Blood Count 4.51 M/mm3 (3.65-5.03)
[2018-10-02 04:49] LABS: BUN/Creatinine Ratio 12; Blood Urea Nitrogen 12 mg/dL (9-20); Calcium 8.7 mg/dL (8.4-10.2); Hemolysis Index 5
[2018-10-02] MEDS: PROTONIX IV SCH ×2 (05:30→23:34)
[2018-10-02] MEDS ORDERED: ZOSYN/NS 4.5GM/100ML 4.5 GM/100 ML VIAL IV SCH (06:00)
[2018-10-02] MEDS: MORPHINE IV PRN ×2 (06:18→21:05)
[2018-10-02] MEDS: NACL 0.9% 1000 ML 1,000 ML IV SCH ×2 (06:18→16:14)
[2018-10-02] MEDS: ZOFRAN IV PRN ×3 (06:18→21:05)
[2018-10-02] MEDS ORDERED: ZOFRAN IV PRN (09:34)
[2018-10-02] MEDS ORDERED: TORADOL IV PRN (09:34)
[2018-10-02] MEDS ORDERED: DEMEROL IV PRN ×2 (09:34→12:59)
[2018-10-02] MEDS ORDERED: DILAUDID IV PRN (09:34)
--- NOTE | 2018-10-02 09:34 | Anesthesia Consultation ---
Anesthesia Consult and Med Hx Date of service: 10/02/18 - Airway Anesthetic Teeth Evaluation: Poor ROM Head & Neck: Adequate Mental/Hyoid Distance: Adequate Mallampati Class: Class I Intubation Access Assessment: Good - Pulmonary Exam CTA: Yes - Cardiac Exam Cardiac Exam: RRR - Pre-Operative Health Status ASA Pre-Surgery Classification: ASA2, Emergency Proposed Anesthetic Plan: General - Pulmonary Hx Smoking: Yes - Other Systems Hx Cancer: No
--- NOTE | 2018-10-02 09:34 | Anesthesia Day of Surgery ---
Anesthesia Day of Surgery - Day of Surgery Patient Examined: Yes Patient H&P Reviewed: Yes Patient is NPO: Yes
[2018-10-02] MEDS ORDERED: SUBLIMAZE ONE (09:44)
[2018-10-02] MEDS ORDERED: XYLOCAINE MPF 2% ONE (09:44)
[2018-10-02] MEDS ORDERED: ZEMURON IV ONE (09:44)
[2018-10-02] MEDS ORDERED: VERSED ONE (09:44)
[2018-10-02] MEDS ORDERED: QUELICIN ONE (09:46)
[2018-10-02] MEDS ORDERED: DIPRIVAN 10 MG/ML IV ONE (09:50)
--- NOTE | 2018-10-02 09:52 | XRay Report ---
FINAL REPORT EXAM: XR CHEST 1V AP HISTORY: preop hx of asthma TECHNIQUE: Chest, portable semi upright PRIORS: 07/23/2018 FINDINGS: The heart size is normal. Mediastinal contours are normal. Pulmonary vasculature is not congested. The lungs are clear. There are no pleural effusion seen. There is no evidence of pneumothorax. IMPRESSION: There is no acute abnormality identified.
[2018-10-02] MEDS ORDERED: DECADRON ONE (09:53)
[2018-10-02] MEDS ORDERED: LOVENOX SUB-Q SCH (10:00)
[2018-10-02] MEDS ORDERED: MARCAINE 0.5% INFILTRATI ONE ×3 (10:11→11:44)
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
[2018-10-02] MEDS ORDERED: NACL 0.9% 100 ML ONE ×2 (10:36→12:53)
[2018-10-02] MEDS ORDERED: XYLOCAINE 1% 20 mL ONE (11:08)
--- NOTE | 2018-10-02 11:25 | Progress Note ---
Subjective Date of service: 10/02/18 Principal diagnosis: acute cholecystitis Interval history: Requested by surgeon to perform block for postoperative analgesia on this 38 y/o male preop lap arsen. Pt otherwise healthy. Informed consent obtained. Bilateral quadratus lumborum blocks performed under clean conditions with chlorhexidine prep. 30 ml 0.25% bupivacaine with 4 mg decadron and 100 mcg clonidine injected each side under ultrasound gguidance via 21ga 100mm b bevel needle. Pt tolerated well - no heme or paresthesia. Objective - Constitutional Vitals: Vital Signs - 12hr 10/02/18 10/02/18 10/02/18 04:12 07:16 08:09 Temperature 98.1 F 98.3 F Pulse Rate 91 H 87 89 Respiratory 16 18 18 Rate Blood Pressure 121/66 100/53 119/68 [Right] O2 Sat by Pulse 99 100 Oximetry 10/02/18 08:32 Temperature Pulse Rate 91 H Respiratory Rate Blood Pressure [Right] O2 Sat by Pulse 99 Oximetry - Labs CBC & Chem 7: 10/02/18 04:13 10/02/18 04:13 Labs: Abnormal lab results 10/01/18 10/01/18 10/01/18 Range/Units 23:05 23:05 Unknown WBC 11.8 H (4.5-11.0) K/mm3 RDW 13.0 L (13.2-15.2) % Lymph % (Auto) (13.4-35.0) % Lymph # (1.2-5.4) K/mm3 Seg Neutrophils % 76.5 H (40.0-70.0) % Seg Neutrophils # 9.1 H (1.8-7.7) K/mm3 Glucose 145 H (75-100) mg/dL Lipase (13-60) units/L Ur Specific [place] 1.053 H (1.003-1.030) 10/02/18 10/02/18 10/02/18 Range/Units 04:13 04:13 Unknown WBC 15.7 H (4.5-11.0) K/mm3 RDW 13.0 L (13.2-15.2) % Lymph % (Auto) 6.6 L (13.4-35.0) % Lymph # 1.0 L (1.2-5.4) K/mm3 Seg Neutrophils % 89.0 H (40.0-70.0) % Seg Neutrophils # 14.0 H (1.8-7.7) K/mm3 Glucose 143 H (75-100) mg/dL Lipase 12 L (13-60) units/L Ur Specific [place] (1.003-1.030)
[2018-10-02] MEDS ORDERED: XYLOCAINE 1% 20 mL INFILTRATI ONE (11:44)
[2018-10-02] MEDS ORDERED: NACL 0.9% 1000 ML 1,000 ML ONE ×2 (11:50→12:21)
[2018-10-02] MEDS ORDERED: ROBINUL ONE (12:06)
[2018-10-02] MEDS ORDERED: PERCOCET 5/325 PO PRN (12:15)
--- NOTE | 2018-10-02 12:17 | Post Operative Note ---
Date of procedure: 10/02/18 Pre-op diagnosis: acute appendicitis Post-op diagnosis: same Findings: dilated, thickened, inflamed appendix in the pelvic position Procedure: laparoscopic appendectomy Anesthesia: GETA, other (block) Surgeon: DANY HENSLEY Estimated blood loss: minimal Pathology: list (appendix) Specimen disposition: to lab Condition: stable Disposition: PACU
[2018-10-02] MEDS ORDERED: DEMEROL ONE (12:46)
[2018-10-02] MEDS ORDERED: ATROVENT IH ONE ×2 (12:51→14:00)
[2018-10-02] MEDS ORDERED: PROVENTIL IH ONE ×2 (12:52→14:00)
[2018-10-02] MEDS ORDERED: DILAUDID ONE (13:40)
[2018-10-02] MEDS: SODIUM CHLORIDE FLUSH SYRINGE 10 ML IV SCH ×2 (18:38→21:16)
[2018-10-03] MEDS: NACL 0.9% 1000 ML 1,000 ML IV SCH ×2 (00:21→05:14)
[2018-10-03] MEDS: ZOFRAN IV PRN (00:54)
[2018-10-03] MEDS: MORPHINE IV PRN ×2 (05:19→09:15)
[2018-10-03] MEDS: PROTONIX IV SCH (09:15)
[2018-10-03] MEDS ORDERED: AFLURIA QUAD 2018-2019 SYRINGE IM ONE (12:00)
--- NOTE | 2018-10-03 12:28 | Operative Report ---
PREOPERATIVE DIAGNOSIS: Acute appendicitis. POSTOPERATIVE DIAGNOSIS: Acute appendicitis. FINDINGS: Dilated, thickened, and inflamed appendix in the pelvic position. PROCEDURE: Laparoscopic appendectomy. ANESTHESIA: General endotracheal anesthesia, abdominal block. SURGEON: Monique Mcrae DO ESTIMATED BLOOD LOSS: Minimal. PATHOLOGY: Appendix. SPECIMEN: Disposition to the lab. CONDITION: Stable. DISPOSITION: PACU. HISTORY OF PRESENT ILLNESS AND INDICATION: The patient is a 38-year-old male, who presented to the Emergency Room with complaints of severe, constant suprapubic and periumbilical abdominal pain for 1 day. He had a leukocytosis on his labs and CT scan of the abdomen and pelvis showed a thickened and dilated appendix with concerns for acute appendicitis. Laparoscopic appendectomy was recommended. All risks, benefits, alternatives to surgery were discussed with the patient and questions answered. Consent was obtained. PROCEDURE IN DETAIL: The patient was identified in the preoperative area, taken back to the operating room, placed on the operating table in supine position. After anesthesia was induced, the Guallpa catheter was sterilely placed by the circulating nurse. The abdomen was then prepped and draped in the usual sterile fashion. A timeout performed. A Veress needle was inserted into the umbilicus and the positioning of the Veress needle was confirmed using saline drop test. The abdomen was insufflated to 15 mmHg and a 5 mm supraumbilical incision was made using an 11 blade. Through this incision, a 5 mm Optiview trocar was placed under direct visualization. The abdomen was then inspected and there was no underlying injury to any of the abdominal contents. The Veress needle was withdrawn. The patient was placed into Trendelenburg and tilted to the left. The right lower quadrant was visualized and there were adhesions from the cecum to the lateral right abdominal wall. An additional 5 mm suprapubic and 12 mm left lower quadrant trocars were placed under direct visualization. The adhesions from the cecum to the lateral abdominal wall were taken down using the Harmonic scalpel. The ileocecal fat pad was identified and this was grasped and lifted and retracted medially and cephalad. The appendix was visualized in the pelvic position. The appendix was grasped and lifted towards the abdominal wall. The base of the appendix was visualized. The appendix appeared thickened, inflamed and dilated. I first turned my attention to ligating the mesentery. The mesoappendix was ligated using Harmonic scalpel. The base of the appendix was transected using the Ethilon flex 45 mm white load stapler. The appendix was placed into an EndoCatch bag and placed in the left lower quadrant. The staple line and ligated mesoappendix was examined and hemostasis ensured. The patient was then placed into neutral position and the appendix removed via the 12 mm port. The 12 mm port fascia was closed with an interrupted 0 Vicryl stitch using the Ananda-Devonte device. The remaining ports were removed under direct visualization and the abdomen desufflated. The skin incisions were closed with 4-0 Monocryl subcuticular stitch and skin glue. The Guallpa catheter was removed. At the end of the case, all sponge, instrument and sharp counts were correct x 2. The patient was awoken from anesthesia, extubated, and taken to PACU in stable condition. JOB# [id number] MAURICE/SARAHI KNUTSON
--- NOTE | 2018-10-03 13:26 | Progress Note ---
Assessment and Plan 38 yo M s/p laparoscopic appendectomy, POD 1 Plan: 1. likely has ileus post op. will back down to clear liquid diet and await bowel function 2. encouraged patient to ambulate 3. change fluids to maintenance fluids 4. prn pain control 5. DVT ppx 6. IS/pulm toilet 7. obtain cbc and bmp 8. will reeval in am Thank you, please call with questions Subjective Date of service: 10/03/18 Narrative: Pt seen and examined. c/o periumbilical and suprapubic pain and site of incis ions. He feels bloated and is having chest pain. EKG was done. He has eaten but states he feels nauseated. No vomiting. No f/c. He has been OOB to ambulate. No flatus or BM Objective Vital Signs - 12hr 10/03/18 10/03/18 04:16 06:50 Temperature 98.6 F 98.2 F Pulse Rate 87 88 Respiratory 17 20 Rate Blood Pressure 113/57 111/67 O2 Sat by Pulse 95 96 Oximetry - General physical appearance Narrative Exam: Gen: AAOx3. NAD CV: s1, S2+ Resp: even and unlabored Abd: soft, distended and tympanitic, +TTP near midline incisions. Incisions c/d/i ext: no c/c/e - Labs 10/02/18 04:13 10/02/18 04:13
[2018-10-03] MEDS ORDERED: D5/0.45NS 1,000 ML IV SCH (14:00)
[2018-10-03 14:54] LABS: Hematocrit 34.2 % (35.5-45.6); Hemoglobin 11.7 gm/dl (11.8-15.2); Mean Corpuscular HGB Conc 34 % (32-34); Mean Corpuscular Volume 91 fl (84-94); Platelet Count 215 K/mm3 (140-440); Red Blood Count 3.78 M/mm3 (3.65-5.03); Red Cell Distribution Width 13.2 % (13.2-15.2)
[2018-10-03 15:05] LABS: BUN/Creatinine Ratio 9; Blood Urea Nitrogen 10 mg/dL (9-20); Calcium 7.8 mg/dL (8.4-10.2); Hemolysis Index 6
[2018-10-03] MEDS ORDERED: K-DUR PO ONE (15:27)
--- NOTE | 2018-10-03 17:36 | Progress Note ---
Assessment and Plan - Patient Problems (1) Acute appendicitis Current Visit: Yes Status: Acute Qualifiers: Acute appendicitis type: unspecified acute appendicitis type Qualified Code(s): K35.80 - Unspecified acute appendicitis Plan to address problem: S/p Appendectomy Partial ileus (2) Ileus, unspecified Current Visit: Yes Status: Acute Plan to address problem: Per surgery (3) DVT prophylaxis Current Visit: Yes Status: Acute Plan to address problem: On scd,s Subjective Date of service: 10/03/18 Principal diagnosis: Acute Appendicitis Interval history: S/p Appendectomy Objective - Constitutional Vitals: Vital Signs - 12hr 10/03/18 06:50 Temperature 98.2 F Pulse Rate 88 Respiratory 20 Rate Blood Pressure 111/67 O2 Sat by Pulse 96 Oximetry General appearance: Present: no acute distress, well-nourished - EENT Eyes: PERRL, EOM intact ENT: hearing intact, clear oral mucosa Ears: bilateral: normal - Neck Neck: supple, normal ROM - Respiratory Respiratory effort: normal Respiratory: bilateral: CTA - Breasts Breasts: normal - Cardiovascular Heart rate: 78 Rhythm: regular Heart Sounds: Present: S1 & S2. Absent: gallop, rub Extremities: pulses intact, No edema, normal color, Full ROM - Gastrointestinal General gastrointestinal: Present: soft, non-tender, non-distended, normal bowel sounds - Genitourinary Male genitourinary: normal - Integumentary Integumentary: clear, warm, dry - Musculoskeletal Musculoskeletal: 1, strength equal bilaterally - Neurologic Neurologic: moves all extremities - Psychiatric Psychiatric: memory intact, appropriate mood/affect, intact judgment & insight - Labs CBC & Chem 7: 10/03/18 13:55 10/03/18 13:55 Labs: Abnormal lab results 10/03/18 10/03/18 Range/Units 13:55 13:55 Hgb 11.7 L (11.8-15.2) gm/dl Hct 34.2 L D (35.5-45.6) % Potassium 3.5 L D (3.6-5.0) mmol/L Chloride 109.8 H (98-107) mmol/L Glucose 102 H (75-100) mg/dL Calcium 7.8 L (8.4-10.2) mg/dL
[2018-10-03] MEDS ORDERED: KCL 20MEQ/100ML 20 MEQ/100 ML BAG IV ONE (17:37)
[2018-10-04] MEDS ORDERED: POTASSIUM CHLORIDE PO ONE (10:00)
[2018-10-04] MEDS: PROTONIX IV SCH (10:30)
--- NOTE | 2018-10-04 11:29 | Discharge Summary ---
Providers - Providers Date of Admission: 10/02/18 04:02 Date of discharge: 10/04/18 Attending physician: TIFFANIE ALDANA 10/02/18 04:02 Consult to Physician [CONS] Routine Comment: CONSULT COMPLETED - COCO Consulting Provider: DANY HENSLEY Physician Instructions: Reason For Exam: heberty Primary care physician: [employer] Hospitalization Condition: Stable Hospital course: Patient is a 78 yo man with a history of hypertension, type 1 DM and Parkinson's Disease who presented to [facility] ED due to weight loss, diarrhea, AMS and FTT (1) Acute appendicitis Current Visit: Yes Status: Acute Qualifiers: Acute appendicitis type: unspecified acute appendicitis type Qualified Code(s): K35.80 - Unspecified acute appendicitis Plan to address problem: S/p Appendectomy Partial ileus (2) Ileus, unspecified Current Visit: Yes Status: Acute Plan to address problem: Per surgery (3) DVT prophylaxis Current Visit: Yes Status: Acute Plan to address problem: On scd, Disposition: DC TO HOME OR SELFCARE Time spent for discharge: 35 minutes Core Measure Documentation - Palliative Care Palliative Care/ Comfort Measures: Not Applicable - Core Measures Any of the following diagnoses?: none - VTE Discharge Requirements Deep Vein Thrombosis/Pulmonary Embolism Present on Admission: No Has pt received <5 days of overlap therapy or INR<2.0: No Anticoagulant overlap therapy prescribed at discharge: No Contraindication No Overlap Therapy order at DC: Not Indicated Exam - Physical Exam Narrative exam: Gen: WDWN, NAD, Awake, Alert, Orientated HEENT: NCAT, EOMI, PERRL, OP Clear Neck: supple, no adenopathy, no thyromegaly, no JVD CVS/Heart: RRR, normal S1S2, pulses present bilaterally Chest/Lungs: CTA B, Symmetrical chest expansion, good air entry bilaterally GI/Abdomen: soft, incisional tenderness, nondistended, good bowel sounds, no guarding or rebound /Bladder: no suprapubic tenderness, no CVA or paraspinal tenderness Extermity/Skin: no c/c/e, no obvious rash MSK: FROM x 4 Neuro: CN 2-12 grossly intact, no new focal deficits Psych: calm - Constitutional Vitals: Temp Pulse Resp BP Pulse Ox 97.6 F 59 L 21 104/49 95 10/04/18 07:39 10/04/18 07:39 10/04/18 07:39 10/04/18 07:39 10/04/18 07:39 Plan Follow up with: DANY HENSLEY DO [Staff Physician] - 14 Days PRIMARY CARE, [Primary Care Provider] - 7 Days Prescriptions: oxyCODONE /ACETAMINOPHEN [Percocet 5/325 mg] 2 tab PO Q6H PRN #20 tablet PRN Reason: Pain, Moderate (4-6)
[2018-10-04 11:47] VITALS: BP 115/69
--- NOTE | 2018-10-04 12:56 | Progress Note ---
Assessment and Plan 38 yo M s/p laparoscopic appendectomy, POD 2 Plan: 1. adv to soft diet. patient encouraged to take in PO liquids and slowly adv diet at home 2. encouraged patient to ambulate 3. dc fluids 4. prn PO pain control 5. DVT ppx 6. IS/pulm toilet 7. ok to dc from surgery standpoint. RX for percocet and printed dc instructions left on chart. Pt to follow up in surgery office in 2 weeks D/W Dr. Fitch Thank you, please call with questions Subjective Date of service: 10/04/18 Narrative: Pt seen and examined. No acute complaints. Passing flatus but no BM. Tolerating clear liquids. No n/v. No f/c. Abd pain is controlled. Objective Vital Signs - 12hr 10/04/18 10/04/18 10/04/18 04:48 04:57 07:39 Temperature 98.2 F 97.6 F Pulse Rate 53 L 56 L 59 L Respiratory 17 21 Rate Blood Pressure 104/49 Blood Pressure 105/61 [Right] O2 Sat by Pulse 97 96 95 Oximetry 10/04/18 10/04/18 11:11 11:12 Temperature 97.9 F Pulse Rate 68 62 Respiratory 19 Rate Blood Pressure 115/69 Blood Pressure [Right] O2 Sat by Pulse 97 97 Oximetry - General physical appearance Narrative Exam: Gen; AAOx3. NAD CV: s1, S2+ resp: even and unlabored Abd: soft, mildly distended, NT. incisions c/d/i. Ext: no c/c/e - Labs 10/03/18 13:55 10/03/18 13:55 Diabetes panel 10/03/18 Range/Units 13:55 Sodium 141 (137-145) mmol/L Potassium 3.5 L D (3.6-5.0) mmol/L Chloride 109.8 H (98-107) mmol/L Carbon Dioxide 24 (22-30) mmol/L BUN 10 (9-20) mg/dL Creatinine 1.1 (0.8-1.5) mg/dL Glucose 102 H (75-100) mg/dL Calcium 7.8 L (8.4-10.2) mg/dL Calcium panel 10/03/18 Range/Units 13:55 Calcium 7.8 L (8.4-10.2) mg/dL Pituitary panel 10/03/18 Range/Units 13:55 Sodium 141 (137-145) mmol/L Potassium 3.5 L D (3.6-5.0) mmol/L Chloride 109.8 H (98-107) mmol/L Carbon Dioxide 24 (22-30) mmol/L BUN 10 (9-20) mg/dL Creatinine 1.1 (0.8-1.5) mg/dL Glucose 102 H (75-100) mg/dL Calcium 7.8 L (8.4-10.2) mg/dL Adrenal panel 10/03/18 Range/Units 13:55 Sodium 141 (137-145) mmol/L Potassium 3.5 L D (3.6-5.0) mmol/L Chloride 109.8 H (98-107) mmol/L Carbon Dioxide 24 (22-30) mmol/L BUN 10 (9-20) mg/dL Creatinine 1.1 (0.8-1.5) mg/dL Glucose 102 H (75-100) mg/dL Calcium 7.8 L (8.4-10.2) mg/dL
== END 2018-10-04 15:30 | disposition home or self-care (01) | DRG 342 ==
LOC: ED 22:40 → 3B-SURG 10-02 04:02
PROVIDERS: ADMIT Internal Medicine; ATTEND Internal Medicine
PROC: 0DTJ4ZZ Resection of Appendix, Percutaneous Endoscopic Approach (ICD-10-PCS; principal; 2018-10-02)
PROC: 3E0T3BZ Introduction of Anesthetic Agent into Peripheral Nerves and Plexi, Percutaneous Approach (ICD-10-PCS; 2018-10-02)
DX: K35.80 Unspecified acute appendicitis (principal); K56.7 Ileus, unspecified; F17.210 Nicotine dependence, cigarettes, uncomplicated; Z82.49 Family history of ischemic heart disease and other diseases of the circulatory system; E10.9 Type 1 diabetes mellitus without complications; K66.0 Peritoneal adhesions (postprocedural) (postinfection); G20 Parkinson's disease; I10 Essential (primary) hypertension
CPT/HCPCS: 36415; 71045; 74177; 80048; 80053; 81001; 83690; 85025; 85027; 88304; 90686; 93005; 93010; 96365; 96375; G0378; C9113; J0330; J0735; J1100; J1170; J1885; J2175; J2250; J2270; J2405; J2543; J2704; J3010; J3480; J7030; Q9967